=== PATIENT | female | born 1955 | race African-American/Black ===

== ENCOUNTER 2016-09-07 01:59 | Emergency (ER) | payer MEDICARE, MEDICAID ==
[~2016-09-07] VITALS: Ht 165.1 cm; Wt 66.0 kg
[2016-09-07 02:06] VITALS: BP 177/117
== END 2016-09-07 04:45 | disposition left against medical advice (07) ==
LOC: ER 02:29
DX: I10 Essential (primary) hypertension (principal); Z53.21 Procedure and treatment not carried out due to patient leaving prior to being seen by health care provider